=== PATIENT | male | born 1955 | race Caucasian/White ===

== ENCOUNTER → 2016-11-30 | Outpatient (CLI) | payer OTHER, BC ==
[~2016-11-30] MED LIST: ALBU0.08 INH; ALBUAER19 INH; BUPR100T4 PO; HYDROCODONE-ACE PO; HYZ/50125 PO; MECL1TAB42 PO; NRN100 PO; NSNN50 NAE; ONDA4TAB54 PO; PRLSR20 PO; SIMV20TA2 PO; SNG10 PO; SYMIN8045 INH; VERA240C2 PO
[2016-11-30 11:39] LABS: BASO % 0.3 %; BASO ABS # 0.04 K/uL (0-0.2); COMPLETE YES; EOS % 0.2 %; HEMATOCRIT 47.6 % (42-52); IG% 0.4 %; LYMPH % 17.8 %; LYMPH ABS # 2.27 K/uL (1.2-3.4); MEAN CELL VOLUME 85.5 fL (80-100); MEAN CORPUSCULAR HEMOGLOBIN 28.7 pg (25-34); MEAN CORPUSCULAR HGB CONC 33.6 g/dl (32-36); MONO % 8.6 %; NEUT % 72.7 %; PLATELET COUNT 236 K/uL (130-400); RED BLOOD COUNT 5.57 M/uL (4.7-6.1); WHITE BLOOD COUNT 12.72 K/uL (4.8-10.8)
[2016-11-30 12:09] LABS: ALT/SGPT 32 U/L (12-78); AST/SGOT 23 U/L (15-37); BLOOD UREA NITROGEN 17 mg/dl (7-18); CALCIUM 9.3 mg/dl (8.5-10.1); CARBON DIOXIDE 26 mmol/L (21-32); CHLORIDE 103 mmol/L (98-107); GLUCOSE 114 mg/dl (70-99); POTASSIUM 3.5 mmol/L (3.5-5.1); SODIUM 139 mmol/L (136-145)
[2016-11-30 12:12] LABS: ALB/GLOB RATIO 1.1 (0.9-2); ALKALINE PHOSPHATASE 88 U/L (45-117)
--- NOTE | 2016-12-11 12:48 | CODING QUERY MEDICAL NECESSITY ---
CQSUPPORTING DIAGNOSIS NEEDED A supporting diagnosis is required for the test/procedure performed on this patient in order for us to be reimbursed by the patient's insurance. Please provide a supporting diagnosis for the following test/procedure listed below next to the test name along with your signature. *If there is no additional diagnosis for this patient that would support the following test/procedure please document that below next to the test/procedure. Test(s)/Procedure(s) that require a supporting diagnosis: DOS 11/30/16 VITAMIN D TEST Provider Signature: Date: Thank you Breanna Marcos Health Information Management Once completed, please kindly fax back to [phone] For questions please call [phone]
== END | disposition home or self-care (01) ==
LOC: C.LAB1850 10:30
PROVIDERS: ATTEND Physician Assistant Medical
DX: G43.119 Migraine with aura, intractable, without status migrainosus (principal); G43.709 Chronic migraine without aura, not intractable, without status migrainosus; R42 Dizziness and giddiness; K57.92 Diverticulitis of intestine, part unspecified, without perforation or abscess without bleeding; E55.9 Vitamin D deficiency, unspecified

== ENCOUNTER → 2017-01-28 | Outpatient (CLI) | payer OTHER, BC ==
[~2017-01-28] MED LIST changes: +OPTIRAY 320 IV PRN
--- NOTE | 2017-01-28 09:20 | DIAGNOSTIC IMAGING REPORT ---
ABD/PELVIS IV AND ORAL CONT HISTORY: 61 years-old Male K57.30 Diverticulosis of [id number] COMPARISON: CT 10/20/2010 TECHNIQUE: Multiple axial CT images of the abdomen and pelvis were obtained following the intravenous administration of 119 mL Optiray 320. Oral contrast also administered. A dose lowering technique was used consistent with the principals of CHUCK. FINDINGS: Lung bases are clear. No pneumoperitoneum. Coronary arterial calcifications noted. The liver, spleen, gallbladder, pancreas and adrenal glands are within normal limits. 1.5 cm low attenuating lesion of the inferior pole left kidney suggests cyst with 8 mm left interpolar lesion too small to characterize, however also likely reflecting a cyst. No renal calculi or hydronephrosis. Ureters, and urinary bladder are unremarkable. Coarse heterogeneous central prostatic calcifications are noted. Small left inguinal hernia is fat filled. No bulky adenopathy. No aortic aneurysm. There is no bowel obstruction. Extensive sigmoid colonic diverticulosis without definite CT evidence of acute diverticulitis. No evidence of perforation or abscess. Appendix is normal. Soft tissues are unremarkable. 9 mm anterolisthesis L5 on S1 secondary to remote bilateral pars defects. Moderate multilevel facet arthrosis of the lower lumbar spine. Moderate intervertebral disc space narrowing at L5-S1. IMPRESSION: 1. Extensive sigmoid colonic diverticulosis without CT evidence of acute diverticulitis. 2. Normal appendix. 3. Remote bilateral pars defects at L5 with grade 1 anterolisthesis L5 on S1. The above report was generated using voice recognition software. It may contain grammatical, syntax or spelling errors. Electronically signed by: Ubaldo Winn M.D. 01/28/2017 9:19 AM Dictated Date/Time: 01/28/2017 9:10 AM
== END | disposition home or self-care (01) ==
LOC: C.CTS 08:33
PROVIDERS: ATTEND Surgery
DX: K57.30 Diverticulosis of large intestine without perforation or abscess without bleeding (principal)

== ENCOUNTER → 2017-03-29 | Outpatient (CLI) | payer OTHER, BC ==
[~2017-03-29] MED LIST changes: -OPTIRAY 320 IV PRN
[2017-03-29 12:49] LABS: BASO % 0.8 %; BASO ABS # 0.06 K/uL (0-0.2); COMPLETE YES; EOS % 0.8 %; HEMATOCRIT 46.1 % (42-52); IG% 0.3 %; LYMPH % 35.9 %; MEAN CELL VOLUME 85.2 fL (80-100); MEAN CORPUSCULAR HEMOGLOBIN 29.6 pg (25-34); MEAN CORPUSCULAR HGB CONC 34.7 g/dl (32-36); MEAN PLATELET VOLUME 8.9 fL (7.4-10.4); NEUT % 55.2 %; PLATELET COUNT 233 K/uL (130-400); RED BLOOD COUNT 5.41 M/uL (4.7-6.1); WHITE BLOOD COUNT 7.24 K/uL (4.8-10.8)
[2017-03-29 13:17] LABS: ALT/SGPT 35 U/L (12-78); BLOOD UREA NITROGEN 17 mg/dl (7-18); BUN/CREATININE RATIO 13.6 (10-20); CALCIUM 8.9 mg/dl (8.5-10.1); CARBON DIOXIDE 28 mmol/L (21-32); CHLORIDE 103 mmol/L (98-107); CHOLESTEROL 147 mg/dl (0-200); CREATININE 1.22 mg/dl (0.60-1.40); GLUCOSE 105 mg/dl (70-99); SODIUM 138 mmol/L (136-145); TRIGLYCERIDES 144 mg/dl (0-150); VERY LOW DENSITY LIPOPROT CALC 29 mg/dl
[2017-03-29 13:27] LABS: ALB/GLOB RATIO 1.2 (0.9-2); ALKALINE PHOSPHATASE 74 U/L (45-117); AST/SGOT 27 U/L (15-37); CHOLESTEROL/HDL RATIO 2.9; HDL CHOLESTEROL 51 mg/dl; LDL CHOLESTEROL CALCULATED 67 mg/dl; PROSTATE SPECIFIC ANTIGEN 0.457 ng/ml (0.000-4.000); THYROID STIMULATING HORMONE 0.918 uIu/ml (0.300-4.500)
== END | disposition home or self-care (01) ==
LOC: C.LAB1850 11:28
PROVIDERS: ATTEND Internal Medicine Pulmonary Disease
DX: N41.9 Inflammatory disease of prostate, unspecified (principal); J30.9 Allergic rhinitis, unspecified; J45.909 Unspecified asthma, uncomplicated; G47.33 Obstructive sleep apnea (adult) (pediatric); E78.5 Hyperlipidemia, unspecified; I10 Essential (primary) hypertension; G43.909 Migraine, unspecified, not intractable, without status migrainosus

== ENCOUNTER → 2017-07-22 | Outpatient (CLI) | payer OTHER, BC | END | disposition home or self-care (01) | LOC: C.RDSM 16:48 | PROVIDERS: ATTEND Physical Medicine & Rehabilitation Sports Medicine | DX: M79.641 Pain in right hand (principal) ==

== ENCOUNTER → 2017-07-29 | Outpatient (CLI) | payer OTHER, BC ==
[~2017-07-29] MED LIST changes: +GADAVIST IV PRN
--- NOTE | 2017-07-29 13:01 | DIAGNOSTIC IMAGING REPORT ---
MRI OF THE RIGHT THIRD FINGER WITHOUT A WITH GADOLINIUM CLINICAL HISTORY: Right third finger mass. COMPARISON STUDY: Conventional radiographic study dated 07/22/2017 FINDINGS: Imaging was performed in the axial, sagittal, and coronal planes before and after the administration of 9 cc of intravenous Gadavist There are no suspicious areas of marrow replacement. Within the dorsal soft tissues at the level of the distal aspect of the proximal phalanx of the third/middle finger, there is a 7 x 6 x 3 mm soft tissue lesion which is T1 hypointense, and T2 hyperintense. There is equivocal minimal peripheral enhancement. Additionally there is a tiny adjacent for magnetic artifact within the dorsal skin at this level. The lesion abuts the extensor tendon. There is no bone involvement. The lesion likely represents a small ganglion. Given the adjacent for magnetic artifact, an inflammatory lesion secondary to a foreign body cannot be excluded. IMPRESSION: 1. 7 x 6 x 3 mm T1 hypointense T2 hyperintense soft tissue mass within the dorsal soft tissues at the level of the distal aspect of the proximal phalanx the third/middle finger 2. The lesion likely represents a small ganglion, or inflammatory lesion secondary to a tiny adjacent foreign body. 3. No marrow signal abnormalities are visualized Electronically signed by: Frandy Jimenez M.D. 07/29/2017 12:59 PM Dictated Date/Time: 07/29/2017 12:47 PM
== END | disposition home or self-care (01) ==
LOC: C.MRI 11:22
PROVIDERS: ATTEND Physical Medicine & Rehabilitation Sports Medicine
DX: R22.31 Localized swelling, mass and lump, right upper limb (principal); M79.641 Pain in right hand; R93.7 Abnormal findings on diagnostic imaging of other parts of musculoskeletal system

== ENCOUNTER → 2017-11-22 | Outpatient (CLI) | payer OTHER ==
[~2017-11-22] MED LIST changes: -GADAVIST IV PRN; +ONDA4TAB10 SL; +OXYC-737 PO
== END | disposition home or self-care (01) ==
LOC: C.LAB1850 10:19
PROVIDERS: ATTEND Physical Medicine & Rehabilitation Sports Medicine
DX: M67.441 Ganglion, right hand (principal); Z86.14 Personal history of Methicillin resistant Staphylococcus aureus infection